=== PATIENT | male | born 1960 | race African-American/Black ===

== ENCOUNTER 2020-03-27 13:40 | Inpatient (IN) | payer OTHER ==
[~2020-03-27] VITALS: Ht 170.2 cm; Wt 60.8 kg
[2020-03-27] VITALS (23 sets, daily range): BP systolic 84–165; BP diastolic 41–93
--- NOTE | 2020-03-27 13:52 | NUR ---
NALOXONE IV PUSH GIVEN 1352 PER DOCTOR ORDERS
[2020-03-27 14:09] LABS: ABSOLUTE NEUTROPHILS 3.4 thou/uL (1.4-8.2); BASOPHILS 1.1 % (0.0-2.0); EOSINOPHILS 0.5 % (0.0-3.0); HEMATOCRIT 38.1 % (42.0-52.0); HEMOGLOBIN 12.7 gm/dL (14.0-18.0); LYMPHOCYTES 36.9 % (24.0-44.0); MCH 34.9 pg (26.0-34.0); MCHC 33.4 g/dL (28.0-37.0); MCV 104.3 fL (80.0-100.0); MONOCYTES 12.5 % (1.0-8.0); PLATELET COUNT 224 thou/uL (150-400); RBC 3.65 mil/uL (4.50-6.00); RDW 11.4 % (10.5-14.5)
[2020-03-27 14:13] LABS: URINE BILIRUBIN NEGATIVE (Negative); URINE BLOOD NEGATIVE (Negative); URINE CLARITY CLEAR; URINE COLOR YELLOW; URINE GLUCOSE-RANDOM* NEGATIVE (Negative); URINE KETONES NEGATIVE (Negative); URINE LEUKOCYTES-REFLEX NEGATIVE (Negative); URINE NITRITE-REFLEX NEGATIVE (Negative); URINE PROTEIN (DIPSTICK) NEGATIVE (Negative)
[2020-03-27 14:20] LABS: CALCIUM 8.9 mg/dL (8.5-10.1); CREATININE 0.8 mg/dL (0.7-1.3); POTASSIUM 3.3 mmol/L (3.5-5.1)
[2020-03-27 14:21] LABS: AMP/METHAMP Negative (Negative); BARBITURATES Negative (Negative); BENZODIAZEPINES Negative (Negative); COCAINE Negative (Negative); METHADONE Negative (Negative); OPIATES Negative (Negative); PCP POSITIVE (Negative)
[2020-03-27 14:27] LABS: ALBUMIN 3.2 g/dL (3.4-5.0); SALICYLATE 4.2 mg/dL (2.8-20.0); TOTAL BILIRUBIN 0.5 mg/dL (0.2-1.0); TOTAL PROTEIN 7.8 g/dL (6.4-8.2)
[2020-03-27 14:32] LABS: BE(vivo) 1.8 mmol/L (-2 to +3); HCO3 27.1 mmol/L (22.0-26.0); PO2 258.6 mmHg (80.0-100.0); pH 7.397 (7.360-7.450); sO2 99.6 % (92.0-98.0)
--- NOTE | 2020-03-27 16:30 | NUR ---
TRIED TO CALL CONTACT IN PT PHONE, ZACH, PERSON WHO ANSWERED DID NOT KNOW PT'S CORRECT NAME, COULD NOT TELL ME WHO WAS FAMILY TO THIS PT. NO INFORMATION WAS PROVIDED TO THIS PERSON
[2020-03-27 17:50] LABS: FOLIC ACID 9.8 ng/mL (8.6-58.9)
--- NOTE | 2020-03-27 17:50 | NUR ---
SPOKE WITH BRAVO REGARDING MULTI LEUMN PICC, PROVIDER APPROVED. REQUEST TO PUT ORDER IN AT THIS TIME
--- NOTE | 2020-03-27 18:50 | NUR ---
VAT CONSULTED FOR A CL FOR THIS PT. A 5FRTL PLACED RT IJ, PLEASE SEE NI FOR DETAILS
--- NOTE | 2020-03-27 23:20 | NUR ---
Pt admitted to ICU room 237 at 1850 from ED. Pt raising legs, attempting to grab ET tube after moved from cart to bed. Propofol increased to sedated pt and prevent self extubation. Pt does not follow commands, can move all extremities; monitor sinus rhythm with BBB on arrival. Left nare NG irrigated with air and auscultated over stomach, placed to LIS. Urine output at least 30 cc/hr.
[2020-03-28] VITALS (28 sets, daily range): BP systolic 97–186; BP diastolic 50–99
[2020-03-28 09:10] LABS: ABSOLUTE NEUTROPHILS 3.5 thou/uL (1.4-8.2); BASOPHILS 0.8 % (0.0-2.0); EOSINOPHILS 0.9 % (0.0-3.0); HEMATOCRIT 34.9 % (42.0-52.0); HEMOGLOBIN 11.6 gm/dL (14.0-18.0); LYMPHOCYTES 24.7 % (24.0-44.0); MCH 35.1 pg (26.0-34.0); MCHC 33.3 g/dL (28.0-37.0); MCV 105.3 fL (80.0-100.0); MONOCYTES 12.1 % (1.0-8.0); PLATELET COUNT 186 thou/uL (150-400); POLYS 61.5 % (36.0-66.0); RBC 3.31 mil/uL (4.50-6.00); RDW 11.5 % (10.5-14.5); WBC 5.8 thou/uL (4.0-11.0)
[2020-03-28 09:15] LABS: ANION GAP 7 mmol/L (7-16); BUN 6 mg/dL (7-18); CALCIUM 8.4 mg/dL (8.5-10.1); CHLORIDE 108 mmol/L (98-107); CO2 28 mmol/L (21-32); CREATININE 0.7 mg/dL (0.7-1.3); GLUCOSE 98 mg/dL (74-106); MAGNESIUM 1.7 mg/dL (1.8-2.4); SODIUM 143 mmol/L (136-145)
[2020-03-28 09:19] LABS: POTASSIUM 4.5 mmol/L (3.5-5.1)
[2020-03-28 09:34] LABS: CHOLESTEROL 181 mg/dL (<200); HDL CHOLESTEROL 45 mg/dL (>40); LDL CHOLESTEROL 94 mg/dL (<100); TRIGLYCERIDE 212 mg/dL (<150); VLDL 42 mg/dL (<40)
--- NOTE | 2020-03-28 10:12 | NUR ---
Nutrition: REC initiate Tube feeds of Vital HP to reach 50 mL/hr if pt not extubated today.
--- NOTE | 2020-03-28 11:41 | HC ---
[facility] [place] [address] CONSULTATION Name: MERCEDEZ NAIK Room #: [facility]- ADM IN M.R.#: [id number] Admission: 03/27/20 Attend Phys: Ian Landis MD Discharge: Date of : 60 Report #: [id number] THIS REPORT FOR: cc: FAM - Family physician unknown FAM - Family physician unknown Buck Ly MD ~ DATE OF SERVICE: 03/28/2020 INFECTIOUS DISEASE CONSULTATION ATTENDING PHYSICIAN: Dr. Landis. REASON FOR EVALUATION: Nonresponsiveness, presented in extremis via ambulance. HISTORY OF PRESENT ILLNESS: Chart reviewed, the patient examined. This is a 59-year-old gentleman unable to give any history, it is not clear what if any medical history he has. He was found unconscious at a bus stop. He was given Narcan without benefit. He was evaluated including urine drug screen, which is positive for PCP. Alcohol level was elevated at 173. Did have elevated hepatic transaminases as well. Blood cultures collected at time of admission are negative thus far. Due to concern about compromise of his airway, he was intubated, maintained on ventilatory support. He has had low-grade temperature elevations from 100.3 this a.m., he has not had requirement of any pressor support. Additional testing showed urinalysis, which was unremarkable. Chest x-ray without acute process. Troponin level was normal less than 0.06 and lactic acid of 2.3. CT of the head was otherwise unremarkable. ALLERGIES: Not able to obtain. PAST MEDICAL HISTORY: Not known. SOCIAL AND FAMILY HISTORY: Not obtainable either. REVIEW OF SYSTEMS: Unobtainable. PHYSICAL EXAMINATION: GENERAL: He appears somewhat chronically ill, undernourished, he is in moderate distress due to some ____ with the ventilator. VITAL SIGNS: Temperature 100.3, pulse 73, respirations 16, blood pressure 129/75. SKIN: Warm, dry, no rashes. HEENT: ET and NG tube in place. NECK: Appears to be supple. LUNGS: Few scattered coarse breath sounds. HEART: Regular. I do not appreciate a murmur. [facility] [address] [place] [address] CONSULTATION Name: MERCEDEZ NAIK Room #: 237- ADM IN M.R.#: [id number] Admission: 03/27/20 Attend Phys: Ian Landis MD Discharge: Date of : 60 Report #: [id number] ABDOMEN: Mildly firm. No overt peritoneal signs. GENITOURINARY AND RECTAL: Deferred. LABORATORY DATA: Initial glucose 103. Urinalysis unremarkable. Drug screen positive for PCP. CBC: White count of 7.0, H and H 12.7 and 38.1, platelets of 224. Electrolytes: Sodium 142, potassium 3.3, chloride 102, bicarbonate is 30, anion gap of 10, BUN and creatinine 11 and 0.8, glucose of 113, SGOT of 136, SGPT of 137, alkaline phosphatase of 98. Albumin of 3.2, total protein 7.8. Acetaminophen less than 2. ABGs: pH 7.397, pCO2 of 45, pO2 of 258.6 on 50%. TSH 0.244, which is low. Alcohol 173. Chest x-ray, no acute cardiopulmonary process. Rapid HIV was negative. ASSESSMENT: Encephalopathy associated with positive drug screen for PCP as well as alcohol levels elevated. The patient has low-grade temperature elevation and also has respiratory failure, now on mechanical ventilatory support, still not entirely clear, but the definition of this is just simply an adverse effect from illicit drugs and alcohol. We will do additional diagnostic testing in terms of infectious causes. Repeat chest x-ray, can exclude an aspiration event, check influenza, ultrasound of the abdomen. I think it is reasonable to start empiric antimicrobial therapy at this point. We will check sputum culture as well as testing for coronavirus. <ELECTRONICALLY SIGNED> By: Buck Ly MD 03/28/20 1141 [id number] Buck Ly MD /nt
--- NOTE | 2020-03-28 11:56 | NUR ---
ASSUMED CARE AT 0700. SEDATION VACATION FROM [id number]. PATIENT BECAME RESTLESS AND AGITATED TOWARD THE END WELL TACHYPNEIC. SEDATION RESTARTED AT LOWER DOSAGE.
--- NOTE | 2020-03-28 16:48 | NUR ---
Case discussed with the care team. PSYCHIATRIC SOCIAL WORKER indicates that the pt has a cell phone but the ER called the 7 persons listed and they did not know the pt. No ID or insurance cards on his person;however he did have a letter stating an [address] of [address] The pt is in critical condition and intubated. Postive UDS and ethol upon admission. [place] [facility] contacted and requested a well check at the above stated address to see if a relative or person that knows the pt is at that location. ICU ext provided should a relative be located along with CM contact number. Will follow.
[2020-03-29] VITALS (22 sets, daily range): BP systolic 102–178; BP diastolic 48–83
[2020-03-29 05:09] LABS: HEMATOCRIT 36.9 % (42.0-52.0); HEMOGLOBIN 12.2 gm/dL (14.0-18.0); MCH 35.1 pg (26.0-34.0); MCHC 33.2 g/dL (28.0-37.0); MCV 105.6 fL (80.0-100.0); RBC 3.49 mil/uL (4.50-6.00); RDW 11.3 % (10.5-14.5); WBC 5.2 thou/uL (4.0-11.0)
[2020-03-29 05:56] LABS: ALBUMIN 2.4 g/dL (3.4-5.0); CALCIUM 8.3 mg/dL (8.5-10.1); CREATININE 0.5 mg/dL (0.7-1.3); POTASSIUM 3.6 mmol/L (3.5-5.1); TOTAL PROTEIN 6.7 g/dL (6.4-8.2)
[2020-03-29 11:07] LABS: HAV IgM AB (ANTI-HAV IgM) Negative (Negative); HEPATITIS B SURFACE AG Negative (Negative); HEPATITIS C VIRUS AB >11.0 (0.0-0.9)
--- NOTE | 2020-03-29 15:27 | NUR ---
ECLY reviewed chart and spoke with nursing. Pt remains intubated. Not ready for vent weaning trials yet. SW placed call to [facility]: [address] . Spoke with Manager Instrumentation Director Of Operations, Izzy. Provided pt's . [facility] is a day prison only. Izzy states that pt has been to the prison only one time, on 03/27. Day of hospital admission. No info regarding pt's family or contact info on file. [facility] is following to assist as needed with discharge planning.
--- NOTE | 2020-03-29 16:49 | NUR ---
ASSUMED CARE AT 0700. PATIENT SLOWLY PROGRESSING TOWARDS THE PLAN OF CARE EVIDENCED BY NO NEW INCREASED OXYGEN DEMANDS HOWEVER PATIENT IS STILL RESTLESS AT TIMES AND ATTEMPTS TO LEAVE THE BED AND REACH FOR THE ET TUBE.
[2020-03-30] VITALS (23 sets, daily range): BP systolic 103–147; BP diastolic 49–81
[2020-03-30 06:14] LABS: HEMATOCRIT 35.7 % (42.0-52.0); HEMOGLOBIN 11.9 gm/dL (14.0-18.0); MCH 35.3 pg (26.0-34.0); MCHC 33.3 g/dL (28.0-37.0); MCV 105.8 fL (80.0-100.0); RBC 3.37 mil/uL (4.50-6.00); RDW 11.6 % (10.5-14.5); WBC 5.9 thou/uL (4.0-11.0)
[2020-03-30 06:26] LABS: CALCIUM 8.5 mg/dL (8.5-10.1); CREATININE 0.6 mg/dL (0.7-1.3); POTASSIUM 3.3 mmol/L (3.5-5.1)
--- NOTE | 2020-03-30 11:16 | NUR ---
ON THE VENT WITH LIGHT SEDATION, OCCASIONALLY PATIENT WILL OPEN HIS EYES AND ATTEMPT TO SIT UP AND MOUTH WORDS. VITALS STABLE AT THIS TIME. TOLERATING TUBEFEEDING PER NG TUBE. NO FAMILY HAS CALLED FOR UPDATES.
--- NOTE | 2020-03-30 11:20 | NUR ---
[facility] [place] d/t hep c, AHRF, and metabolic enchep. They will attempt to revisit with pt once he is off the vent. The pt has an open food stamp case. No previous [place] medicaid on file. DC needs uncertain at this time. Will follow.
[2020-03-31] VITALS (19 sets, daily range): BP systolic 100–149; BP diastolic 55–81
[2020-03-31 06:01] LABS: HEMATOCRIT 36.7 % (42.0-52.0); HEMOGLOBIN 12.2 gm/dL (14.0-18.0); MCHC 33.2 g/dL (28.0-37.0); MCV 105.6 fL (80.0-100.0); RBC 3.48 mil/uL (4.50-6.00); RDW 11.5 % (10.5-14.5); WBC 7.2 thou/uL (4.0-11.0)
[2020-03-31 06:07] LABS: CALCIUM 8.3 mg/dL (8.5-10.1); CREATININE 0.6 mg/dL (0.7-1.3); POTASSIUM 3.5 mmol/L (3.5-5.1)
--- NOTE | 2020-03-31 06:42 | NUR ---
ASSUMED CARE AT 1900. HIGH OUTPUT OF SECRETIONS AT START OF SHIFT, GREEN-YELLOW AND THICK FROM NOSE, MOUTH, AND IN-LINE SUCTION, AND ALSO HAD COARSE CRACKLES IN BILAT LUNGS. GRADUALLY CLEARED UP OVERNIGHT, LUNGS LESS CRACKLING AND LESS SECRETIONS. MAINTAINED ON PROPOFOL AND VERSED, RESTRAINTS MANAGED PER PROTOCOL. NO OTHER CONCERNS.
--- NOTE | 2020-03-31 14:29 | NUR ---
chart review. he remain on vent, nutritional support. unable to visit with maryjane. no contacts for him. will cont following as needed for dc needs. noted he becomes agitation and restless at time.
--- NOTE | 2020-03-31 16:47 | NUR ---
ASSUMED CARE AT 0700. PATIENT PROGRESSING TOWARDS THE PLAN OF CARE EVIDENCED BY DECREASED OCCURENCES OF RESTLESSNESS/AGITATION AND DECREASED OXYGEN REQUIREMENTS ON THE VENTILATOR.
[2020-04-01] VITALS (18 sets, daily range): BP systolic 94–163; BP diastolic 46–81
[2020-04-01 05:59] LABS: CALCIUM 8.7 mg/dL (8.5-10.1); CREATININE 0.5 mg/dL (0.7-1.3); POTASSIUM 3.6 mmol/L (3.5-5.1)
--- NOTE | 2020-04-01 06:18 | NUR ---
ASSUMED CARE OF PATIENT AT 1900. ATTEMPTED TO TITRATE PROPOFOL, PATIENT BECOMES RESTLESS AND OVER BREATHES THE VENT. RESPONDS TO PAINFUL STIMULI AND AWAKENS VERY QUICKLY FROM SEDATION VACATION. RESTRAINTS REMAIN IN PLACE. WORKING TOWARDS POC GOALS.
[2020-04-01 09:31] LABS: BE(vivo) 3.3 mmol/L (-2 to +3); PCO2 38.1 mmHg (35.0-45.0); PO2 85.2 mmHg (80.0-100.0); pH 7.469 (7.360-7.450)
--- NOTE | 2020-04-01 16:44 | NUR ---
PATIENT MADE HUGE STRIDES IN GOALS TODAY. HE WAS EXTUBATED AND WEANED TO ROOM AIR. ROA, CENTRAL LINE AND NG REMOVED. HE HAS ADEQUATE PERIPHERAL ACCESS AND PASSED THE NURSING BEDSIDE SWALLOW. HE WILL BE EVALUATED BY SPEECH FRIDAY AM.
--- NOTE | 2020-04-01 21:41 | NUR ---
PT TRANSFERED FROM ICU. PT AMBULATED WITH WALKER AND UNSTEADY TO RESTROOM. PT IMPULSIVE, PLEASANT. IVF INTACT. BED ALARM ON. PT REAMINS NPO.
[2020-04-02 04:43] VITALS: BP 137/75
[2020-04-02 07:10] VITALS: BP 141/73
[2020-04-02 10:23] LABS: ALBUMIN 2.6 g/dL (3.4-5.0); CALCIUM 9.1 mg/dL (8.5-10.1); CREATININE 0.8 mg/dL (0.7-1.3); TOTAL PROTEIN 7.4 g/dL (6.4-8.2)
[2020-04-02 11:09] LABS: HEMATOCRIT 34.9 % (42.0-52.0); HEMOGLOBIN 11.5 gm/dL (14.0-18.0); MCH 35.1 pg (26.0-34.0); MCHC 32.9 g/dL (28.0-37.0); MCV 106.8 fL (80.0-100.0); RBC 3.27 mil/uL (4.50-6.00); RDW 11.4 % (10.5-14.5)
[2020-04-02 16:20] VITALS: BP 137/75
--- NOTE | 2020-04-02 17:10 | NUR ---
HAS HAD EPISODES OF CONFUSION TODAY-ASKED THIS NURSE TO "SHOOT SOME ANTIBIOTICS INTO IV INFUSING STATING "GARRETT GOT THIS LUMP ON MY KNEE AND SOMEONE TOLD ME TO HAVE YOU JUST PUT AN EXTRA SHOT IN THERE, BEDSIDE SWALLOW EVAL COMPLETED BY TOUCH UP WORKER AND AGAIN TODAY PER REQUEST OF DR. BALBUENA DURING AM ROUNDS-NO NOTED OR REPORTED COUGHING,POCKETING OR PAIN-CLEAR LIQUIDS FOR LUNCH AND ATE 100 PERCENT WITHOUT DIFFICULTY.DENIES PAIN/DISCOMFORT. USING URINAL AT BEDSIDE.
[2020-04-02 19:47] VITALS: BP 143/81
--- NOTE | 2020-04-03 05:04 | NUR ---
RECEIVED CARE OF THIS PATIENT AT 1900. PATIENT ALERT AND ORIENTED X4 WITH PERIODS OF CONFUSION. UP WITH SBA. NO SIGNS OF ETOH WITHDRAW. C/O PAIN, MED GIVEN. SLEPT OFF AND ON DURING NIGHT.
[2020-04-03 08:43] VITALS: BP 130/80
--- NOTE | 2020-04-03 09:32 | NUR ---
ASSUMED CARE AT 0700. PT IS A&O X4. PT IS VERY HUNGRY AND ATE MOST OF HIS BREAKFAST. PT WILL HAVE CONFUSED MOMENTS. IV IS INTACET ON R. AC AND SHOWS NO SIGNS OF REDNESS OR SWELLING. PT DENIES PAIN AND SOA. WILL CONTINUE TO MONITOR PT.
[2020-04-03] MEDS ORDERED: LINEZOLID600 MG PO (12:07)
--- NOTE | 2020-04-03 13:24 | NUR ---
[facility] W/ PT REGARDING D/C LOCATION AND TRANSPORTATION NEEDS. PT STATED HE LIVES W/HIS G/F WHO IS IN [place] FOR SUPERBOWL WEEKEND, W/PLANS TO RTRN HOME TOMORROW. HOWEVER, AT D/C HE WILL STAY W/HIS BROTHER IN . [facility] PROVIDED TAXI VOCHER, IT WAS GIVEN TO PT'S RN.
[2020-04-03 14:12] VITALS: BP 130/80
--- NOTE | 2020-04-03 14:12 | NUR ---
ORDERS FOR EVAL AND TREAT. UPON ENTERING ROOM Pt STANDING AND AMBULATING ON HIS OWN IN THE ROOM. Pt DENIES ISSUES WITH BALANCE OR MOBILITY AND DECLINING A FORMAL P.T EVAL BUT APPEARS SAFE FOR HOME. DISCUSSED WITH NURSING.
== END 2020-04-03 14:30 | disposition home or self-care (01) | DRG 917 ==
LOC: ER 13:40 → EROBS 17:26 → ICU 18:43 → 4S 04-01 19:30
PROVIDERS: Emergency Medicine; Hospitalist; Internal Medicine; Internal Medicine Pulmonary Disease; Nurse Practitioner; Specialist; ADMIT Internal Medicine; ATTEND Internal Medicine
PROC: 0BH18EZ Insertion of Endotracheal Airway into Trachea, Via Natural or Artificial Opening Endoscopic (ICD-10-PCS; principal; 2020-03-27)
PROC: 5A1945Z Respiratory Ventilation, 24-96 Consecutive Hours (ICD-10-PCS; principal; 2020-03-27)
PROC: 02HV33Z Insertion of Infusion Device into Superior Vena Cava, Percutaneous Approach (ICD-10-PCS; principal; 2020-03-27)
DX: T40.991A Poisoning by other psychodysleptics [hallucinogens], accidental (unintentional), initial encounter (principal); J96.01 Acute respiratory failure with hypoxia; G93.41 Metabolic encephalopathy; J69.0 Pneumonitis due to inhalation of food and vomit; G92 Toxic encephalopathy; E46 Unspecified protein-calorie malnutrition; I10 Essential (primary) hypertension; E87.6 Hypokalemia; E03.9 Hypothyroidism, unspecified; D64.9 Anemia, unspecified; B18.2 Chronic viral hepatitis C; Y95 Nosocomial condition; T50.995A Adverse effect of other drugs, medicaments and biological substances, initial encounter; F16.10 Hallucinogen abuse, uncomplicated; F10.10 Alcohol abuse, uncomplicated; Y90.6 Blood alcohol level of 120-199 mg/100 ml; T51.91XA Toxic effect of unspecified alcohol, accidental (unintentional), initial encounter; Z20.822 Contact with and (suspected) exposure to COVID-19; Z68.21 Body mass index [BMI] 21.0-21.9, adult; Y92.89 Other specified places as the place of occurrence of the external cause; Z91.19 Patient's noncompliance with other medical treatment and regimen; Z28.21 Immunization not carried out because of patient refusal
CPT/HCPCS: 10078; 10100; 10102